=== PATIENT | female | born 1950 | race Caucasian/White ===

== ENCOUNTER → 2017-05-04 | Outpatient (CLI) | payer MEDICARE, OTHER ==
[~2017-05-04] MED LIST: ALPR1TAB21 PO; ALPR1TAB7 PO; ALPR1TAB72 PO; AMLO10TA2 PO; ASPI-983 PO; ATEN100T PO; ATEN25TA PO; ATOR80TA76 PO; AZIT-21 PO; CLOP75TA28 PO; CLOP75TA69 PO; DOXY100C2 PO; FLT22013 INH; FURO80TA PO; HYDR-3061 PO; HYDR-3820 PO; ISOS30TA3 PO; LEVO175T5 PO; LEVO25TA5 PO; LORA10TA7 PO; LOSA100T28 PO; LOVA40TA2 PO; LVT.025T PO; MOME13HF IH; NAPR-243 PO; OLME20TA21 PO; PAMI30VI8 SQ; POTA20PI IV; PRAV40TA2 PO; PRD20T PO; RT-ALBUINH IH
--- NOTE | 2017-05-04 12:02 | Diagnostic Imaging Report ---
Renal ultrasound. INDICATION: Chronic renal failure. FINDINGS: The right kidney is 10.8 cm, and the left kidney is 9.7 cm in length. There is no hydronephrosis. There is a 5.2 x 4.8 x 4.4?cm mass. This is concerning for a renal mass, probably renal cell carcinoma. Simple cyst measuring 1.4 cm in the lower pole is seen. IMPRESSION: There is a 5.2-cm solid mass at the upper pole of the right kidney suggestive of renal cell carcinoma. Further evaluation with CT scan and/or MRI of the abdomen is recommended. Dr. Graciela Cheema is called and informed of the findings at 1 PM. Report was faxed to office @ 11:57 AM/adriel. Dictated by: Dictated on workstation # [id number]
== END ==
LOC: RAD 10:41
PROVIDERS: ATTEND Internal Medicine Nephrology
DX: N28.9 Disorder of kidney and ureter, unspecified (principal)
CPT/HCPCS: 76770

== ENCOUNTER → 2017-05-04 | Outpatient (CLI) | payer MEDICARE, OTHER ==
--- NOTE | 2017-05-04 15:52 | Diagnostic Imaging Report ---
PROCEDURE: MRI lumbar spine. TECHNIQUE: Multiplanar, multisequence MRI of the lumbar spine was performed without contrast. INDICATION: Back pain. Bilateral leg pain and numbness. FINDINGS: The alignment of the posterior spinal line is satisfactory. The vertebral body heights are preserved. Disc heights are also preserved. There is mild disc desiccation seen at multiple levels. There is a 2.6 cm marrow lesion seen in L3 vertebral body and other similar smaller lesions in L4 and L5 vertebrae with features suggestive of hemangiomas. The paraspinous soft tissues demonstrate a complex mass arising from the upper pole of the right kidney measuring 5.2 x 3.5 cm in the axial plane. The cauda equina and conus medullaris appear grossly unremarkable. T12/L1: No disc herniation. No spinal canal or foraminal stenosis. L1/L2: No disc herniation. No spinal canal or foraminal stenosis. There is mild facet hypertrophy at this level. L2/L3: There is a diffuse disc bulge and mild to moderate facet hypertrophy. No central canal, lateral recess or foraminal stenosis. L3/L4: There is no disc herniation. There is mild to moderate facet hypertrophy. No central canal, lateral recess or foraminal stenosis. Tiny synovial cyst projecting along the posterior aspect of the right facet joint is seen. L4/L5: There is a minimal disc bulge and moderate facet hypertrophy. No central canal stenosis. There is mild narrowing of the lateral recess bilaterally abutting the descending L5 nerve roots. The neural foramina demonstrate mild narrowing bilaterally. L5/S1: There is a diffuse disc bulge and mild facet hypertrophy. There is no central canal stenosis. There is moderate right lateral recess stenosis, however, abutting the descending right S1 nerve root. No significant left lateral recess stenosis. The foramina demonstrate mild narrowing bilaterally. IMPRESSION: 1. Facet and disc degenerative changes more prominent in the lower lumbar spine. There is moderate right lateral recess stenosis at L5/S1 abutting the descending right S1 nerve root with possible minimal nerve compression. No high-grade spinal canal stenosis at any level. 2. Complex 5.2 cm mass arising from the upper pole of the right kidney concerning for renal cell carcinoma. The renal mass was also seen on ultrasound of the kidneys earlier and the findings were discussed with Dr. Almanza who will obtain CT or MRI and would refer the patient to urology. Dictated by: Dictated on workstation # [id number]
== END ==
LOC: RAD 10:35
DX: M54.16 Radiculopathy, lumbar region (principal); F41.9 Anxiety disorder, unspecified; N28.9 Disorder of kidney and ureter, unspecified
CPT/HCPCS: 72148

== ENCOUNTER → 2017-05-09 | Outpatient (CLI) | payer MEDICARE, OTHER ==
--- NOTE | 2017-05-09 16:44 | Diagnostic Imaging Report ---
PROCEDURE: CT abdomen and pelvis without contrast. TECHNIQUE: Multiple contiguous axial images were obtained through the abdomen and pelvis without the use of intravenous contrast. INDICATION: Chronic kidney disease. Renal mass seen on ultrasound of 05/04/2017. FINDINGS: The lung bases appear unremarkable. The liver, the spleen, the pancreas, and adrenals appear unremarkable for unenhanced exam. There is a 5.2 x 4.4 x 5.4 cm heterogenous mass exophytic from the medial aspect of the upper pole of the left kidney. It is in close proximity to the posteromedial margin of the perinephric fat along its inferior aspect, abutting the proximal aspect of the right psoas muscle with no obvious invasion. Although, there is no contrast enhancement to confirm it is solid, its heterogeneity and overall appearance is almost certainly indicative of cancer. There is a 3 mm upper pole nonobstructive right kidney stone. There is a 1 cm nonobstructive stone in the left renal pelvis. The renal brendon on both sides demonstrate other calcifications that appear to be vascular. There are no para-aortic significantly enlarged lymph nodes. The infrarenal abdominal aorta is ectatic measuring 2.6 cm in caliber. There is unremarkable appearance of the urinary bladder. There is suggestion of prior hysterectomy. There is diverticulosis mostly involving the sigmoid colon with no diverticulitis. The osseous structures appear grossly unremarkable. IMPRESSION: 1. Suspicious 5.4 cm exophytic renal mass at the posteromedial aspect of the upper pole of the left kidney with near complete obliteration of the fatty plane between its posteromedial margin and the origin of the right psoas muscle. No definite invasion seen. Confirmation of solid components with contrast cannot be performed due to renal failure. This is however almost certainly related to renal cell carcinoma. Surgical consultation is recommended. 2. Bilateral nonobstructive kidney stones including a 1 cm left renal pelvic stone. Message left with [facility] [phone] at 3:55 p.m. 05/09/2017/luis a Dictated by: Dictated on workstation # [id number]
== END ==
LOC: RAD 14:04
PROVIDERS: ATTEND Internal Medicine Nephrology
DX: N18.3 Chronic kidney disease, stage 3 (moderate) (principal); N20.0 Calculus of kidney; N28.9 Disorder of kidney and ureter, unspecified
CPT/HCPCS: 74176

== ENCOUNTER → 2017-07-11 | Outpatient (CLI) | payer MEDICARE, OTHER ==
--- NOTE | 2017-07-11 12:13 | Diagnostic Imaging Report ---
Ultrasound abdominal complete. INDICATION: Renal mass. Spectral and color flow imaging of the aorta and the renal arteries was performed. The left renal artery could not be visualized, however, due to overlying bowel gas. As noted on the previous renal ultrasound exam of 05/04/2017, there is a 4.8 x 4.1 x 4.3-cm mass along the superior pole of the right kidney. This mass is worrisome for neoplasm. The right kidney is otherwise unremarkable. There is no evidence for hemodynamically significant stenosis of the right renal artery. There is a small 1.6-cm cyst along the inferior pole of the right kidney. The left kidney measures 10.6 x 5.6 x 5.0 cm. There is no evidence for a solid renal mass or for hydronephrosis of the left kidney. Renal cortices are normal in thickness. The urinary bladder is grossly unremarkable. IMPRESSION: 1. The solid mass along the superior pole of the right kidney seen previously is again evident and no different. This finding should be considered neoplastic until proven otherwise. There is no mass arising from the left kidney, and there is no sign of an acute abnormality of either kidney. 2. There is no evidence for renal artery stenosis on the right. The left renal artery was not visualized however. 3. The bladder is grossly unremarkable. Dictated by: Dictated on workstation # [id number]
== END ==
LOC: RAD 08:16
PROVIDERS: ATTEND Urology
DX: N28.89 Other specified disorders of kidney and ureter (principal)
CPT/HCPCS: 93975